=== PATIENT | female | born 1955 | race Caucasian/White ===

== ENCOUNTER 2018-11-24 06:17 | Day surgery (SDC) | payer BC, OTHER ==
[2018-11-20 12:09] LABS: BASOPHILS # (AUTO) 0.1 X10'3 (0-0.2); BASOPHILS % (AUTO) 0.9 % (0-1); EOSINOPHILS # (AUTO) 0.1 X10'3 (0-0.9); EOSINOPHILS % (AUTO) 0.9 % (0-6); LYMPHOCYTES # (AUTO) 1.8 X10'3 (1.1-4.8); LYMPHOCYTES % (AUTO) 26.6 % (21-51); MEAN CORPUSCULAR HEMOGLOBIN 29.3 PG (27.0-31.0); MEAN CORPUSCULAR HGB CONC 33.5 g/dL (33.0-36.5); MEAN CORPUSCULAR VOLUME 87.4 FL (78-98); MEAN PLATELET VOLUME 9.1 FL (7.4-10.4); MONOCYTES # (AUTO) 0.5 X10'3 (0-0.9); MONOCYTES % (AUTO) 6.9 % (2-12); NEUTROPHILS # (AUTO) 4.4 X10'3 (1.8-7.7); NEUTROPHILS % (AUTO) 64.7 % (42-75); PRE OP HEMATOCRIT 44.3 % (35.0-45.0); PRE OP HEMOGLOBIN 14.8 g/dL (12.0-16.0); PRE OP PLATELET COUNT 244 X10'3 (140-440); RED BLOOD COUNT 5.07 X10'6 (4.20-5.60); RED CELL DISTRIBUTION WIDTH 14.3 % (11.5-14.5)
[2018-11-20 12:15] LABS: ALBUMIN 3.4 G/DL (3.4-5.0); ALBUMIN/GLOBULIN RATIO 0.8 (1.1-1.5); ALKALINE PHOSPHATASE 95 IU/L (46-116); BLOOD UREA NITROGEN 16 MG/DL (7-18); BUN/CREATININE RATIO 18.4 (6.6-38.0); CALCIUM 8.8 MG/DL (8.5-10.1); CHLORIDE 106 MMOL/L (99-107); CREATININE 0.87 MG/DL (0.40-0.90); PRE OP ALT 21 U/L (30-65); PRE OP ANION GAP 6 (8-16); PRE OP AST 11 U/L (10-37); PRE OP BILIRUB, TOTAL 0.3 MG/DL (0.0-1.0); PRE OP GLUCOSE 99 MG/DL (70-104); PRE OP POTASSIUM 3.8 MMOL/L (3.4-5.1); PRE OP SODIUM 138 MMOL/L (135-145); TOTAL CARBON DIOXIDE 26.4 MMOL/L (24-32); TOTAL PROTEIN 7.9 G/DL (6.4-8.2); eGFR 65 ML/MIN
[~2018-11-24] VITALS: Ht 163.8 cm; Wt 120.7 kg
[~2018-11-24 06:17] MED LIST: METO50TA7 PO; SIMV20TA5 PO; VALS40TA2 PO
[2018-11-24] MEDS ORDERED: famotidine 20mg tablet PO ONE (06:30)
[2018-11-24] MEDS ORDERED: ringers solution, lacted 1,000 ML IV SCH ×2 (06:30→07:27)
[2018-11-24] MEDS ORDERED: DOCUMENT DATE & TIME OF BETA-BLOCKER PO ONE (06:30)
[2018-11-24] MEDS ORDERED: cefazolin/dext.iso 2gm/100 ML IV ONE (06:30)
[2018-11-24] MEDS ORDERED: BUPIVAcaine/PF 2.5mg/ml (0.25%) 10ml vial ONE (06:38)
[2018-11-24] MEDS ORDERED: LIDOcaine 0.5% (5mg/ml) 50ml vial ONE (07:08)
[2018-11-24] MEDS ORDERED: proCHLORperazine 10 MG/2 ml inj IV PRN (07:30)
[2018-11-24] MEDS ORDERED: meperidine/PF 25mg/ml syringe IV PRN ×3 (07:30)
[2018-11-24] MEDS ORDERED: morphine 4 MG/ML inj SYRINge IV PRN ×2 (07:30)
[2018-11-24] MEDS ORDERED: ondansetron/PF 4mg/2ml inj IV PRN (07:30)
[2018-11-24 07:42] VITALS: BP 162/102
[2018-11-24 07:45] VITALS: BP 162/102
[2018-11-24] MEDS ORDERED: fentaNYL/PF 50MCG/1 ML 2ML syringe ONE (08:12)
[2018-11-24] MEDS ORDERED: midazolam 2 mg/2 ml injection ONE (08:13)
[2018-11-24] MEDS ORDERED: LIDOcaine 1% (10mg/ml) 2ml vial ONE (08:13)
[2018-11-24] MEDS ORDERED: triamcinolone acetonide 40mg/ml inj ONE (08:13)
[2018-11-24 08:35] VITALS: BP 157/74
--- NOTE | 2018-11-24 08:35 | NUR ---
Received from OR via bed, accompanied by Anesthesiologist. Report received. Initial physical assessment done and recorded.
[2018-11-24 08:45] VITALS: BP 156/78
[2018-11-24 08:55] VITALS: BP 148/78
[2018-11-24 09:05] VITALS: BP 149/77
--- NOTE | 2018-11-24 09:10 | NUR ---
Discharged home in good condition. No complaints of pain during post op period, no pain meds given no complaints Discharge criteria met, discharge instructions given, demonstrates verbal understanding.
== END 2018-11-24 09:10 | disposition home or self-care (01) ==
LOC: PAS 06:17
PROVIDERS: ATTEND Orthopaedic Surgery Hand Surgery
DX: G56.02 Carpal tunnel syndrome, left upper limb (principal); M65.332 Trigger finger, left middle finger; E66.9 Obesity, unspecified; Z68.42 Body mass index [BMI] 45.0-49.9, adult; I10 Essential (primary) hypertension; Z88.8 Allergy status to other drugs, medicaments and biological substances; Z79.899 Other long term (current) drug therapy; Z72.89 Other problems related to lifestyle
CPT/HCPCS: 20550; 29848; 36415; 80053; 82948; 85025; 93005; J2001; J2250; J3010; J3301; J3490; A4215; J7120

== ENCOUNTER 2019-02-02 06:41 | Day surgery (SDC) | payer BC, OTHER ==
[2019-01-30 10:37] LABS: BASOPHILS % (AUTO) 0.4 % (0-1); EOSINOPHILS # (AUTO) 0.1 X10'3 (0-0.9); EOSINOPHILS % (AUTO) 2.1 % (0-6); LYMPHOCYTES # (AUTO) 1.5 X10'3 (1.1-4.8); MEAN CORPUSCULAR HEMOGLOBIN 28.6 PG (27.0-31.0); MEAN CORPUSCULAR HGB CONC 32.6 g/dL (33.0-36.5); MEAN CORPUSCULAR VOLUME 87.6 FL (78-98); MONOCYTES # (AUTO) 0.4 X10'3 (0-0.9); MONOCYTES % (AUTO) 5.3 % (2-12); NEUTROPHILS # (AUTO) 4.6 X10'3 (1.8-7.7); NEUTROPHILS % (AUTO) 69.2 % (42-75); PRE OP HEMATOCRIT 46.1 % (35.0-45.0); PRE OP PLATELET COUNT 223 X10'3 (140-440); RED BLOOD COUNT 5.26 X10'6 (4.20-5.60); RED CELL DISTRIBUTION WIDTH 14.2 % (11.5-14.5)
[2019-01-30 10:51] LABS: ALBUMIN 3.5 G/DL (3.4-5.0); ALBUMIN/GLOBULIN RATIO 0.8 (1.1-1.5); ALKALINE PHOSPHATASE 94 IU/L (46-116); BLOOD UREA NITROGEN 13 MG/DL (7-18); CALCIUM 8.7 MG/DL (8.5-10.1); CHLORIDE 108 MMOL/L (99-107); CREATININE 0.81 MG/DL (0.40-0.90); PRE OP ALT 23 U/L (30-65); PRE OP ANION GAP 7 (8-16); PRE OP AST 12 U/L (10-37); PRE OP BILIRUB, TOTAL 0.4 MG/DL (0.0-1.0); PRE OP GLUCOSE 94 MG/DL (70-104); PRE OP POTASSIUM 4.1 MMOL/L (3.4-5.1); PRE OP SODIUM 143 MMOL/L (135-145); TOTAL PROTEIN 7.9 G/DL (6.4-8.2); eGFR 71 ML/MIN
[~2019-02-02] VITALS: Ht 162.6 cm; Wt 122.0 kg
[2019-02-02] MEDS ORDERED: BUPIVAcaine/PF 2.5 mg/ml (0.25%) 30ml vial ONE (06:47)
[2019-02-02] MEDS ORDERED: BUPIVAcaine/PF 2.5mg/ml (0.25%) 10ml vial ONE (06:47)
[2019-02-02 06:55] VITALS: BP 157/85
[2019-02-02] MEDS ORDERED: LIDOcaine 0.5% (5mg/ml) 50ml vial ONE (07:08)
[2019-02-02] MEDS ORDERED: famotidine 20mg tablet PO ONE (07:15)
[2019-02-02] MEDS ORDERED: ringers solution, lacted 1,000 ML IV SCH ×2 (07:15→08:31)
[2019-02-02] MEDS ORDERED: DOCUMENT DATE & TIME OF BETA-BLOCKER PO ONE (07:15)
[2019-02-02] MEDS ORDERED: ceFAZolin 1GM/D5W- ADD-VANTAGE 50 ML IV ONE (07:15)
[2019-02-02] MEDS ORDERED: cefazolin/dext.iso 2gm/50ml 50 ML IV ONE (07:15)
[2019-02-02] MEDS ORDERED: labetalol 20mg/4ml (5mg/ml) syringe IV PRN (08:35)
[2019-02-02] MEDS ORDERED: ondansetron/PF 4mg/2ml inj IV PRN (08:35)
[2019-02-02] MEDS ORDERED: hydrALAZINE 20mg/ml inj. IV PRN (08:35)
[2019-02-02] MEDS ORDERED: fentaNYL/PF 50MCG/1 ML 2ML syringe IV PRN ×2 (08:35)
[2019-02-02] MEDS ORDERED: morphine 4 MG/ML inj SYRINge IV PRN ×2 (08:35)
[2019-02-02] MEDS ORDERED: propofol 10mg/ml 20ml vial IV ONE (09:03)
[2019-02-02] MEDS ORDERED: fentaNYL/PF 50MCG/1 ML 2ML syringe ONE (09:05)
[2019-02-02] MEDS ORDERED: MIDAZolam 5mg/5ml vial ONE (09:05)
[2019-02-02 09:27] VITALS: BP 97/58
--- NOTE | 2019-02-02 09:27 | NUR ---
Received from OR via joslyn, accompanied by Anesthesiologist Maria D and report given by Anesthesiolgist. Pt alert and responsive to questions, on RA and VS all stable. Pt has bandage to right wrist CDI with 20G left hand IVF LR 100cc/hr. Glasses placed on patient. Ice pack placed to right wrist/palm.
[2019-02-02 09:37] VITALS: BP 120/57
[2019-02-02 09:47] VITALS: BP 132/68
[2019-02-02 09:57] VITALS: BP 120/57
--- NOTE | 2019-02-02 10:07 | NUR ---
Pt discharged to vehicle by wheelchair without incident, son present for DC information, both verbalized understanding of DC instructions. Pt has follow up appointment. IV dc'd. All clothing back on patient and all belongings verified prior to leaving. Pt still has numbness and tingling but some feeling to fingers, good cap refill. all VS have been stable.
== END 2019-02-02 10:07 | disposition home or self-care (01) ==
LOC: PAS 06:41
PROVIDERS: ATTEND Orthopaedic Surgery Hand Surgery
DX: G56.01 Carpal tunnel syndrome, right upper limb (principal); I10 Essential (primary) hypertension; E78.00 Pure hypercholesterolemia, unspecified; M19.90 Unspecified osteoarthritis, unspecified site; E66.9 Obesity, unspecified; Z68.42 Body mass index [BMI] 45.0-49.9, adult; Z88.8 Allergy status to other drugs, medicaments and biological substances; Z79.899 Other long term (current) drug therapy; Z90.710 Acquired absence of both cervix and uterus; Z98.890 Other specified postprocedural states; Z96.659 Presence of unspecified artificial knee joint
CPT/HCPCS: 29848; 36415; 80053; 82948; 85025; J0690; J2001; J2250; J3010; J3490; A4215; A7000; J2704; J7120

== ENCOUNTER 2021-02-13 14:44 | Emergency (ER) | payer BC, OTHER ==
[~2021-02-13] VITALS: Ht 162.6 cm; Wt 120.5 kg
[~2021-02-13 14:44] MED LIST changes: +SIMV-42 PO; -SIMV20TA5 PO
[2021-02-13 14:50] VITALS: BP 157/80
[2021-02-13] MEDS ORDERED: ACET-1025 PO (15:51)
[2021-02-13] MEDS ORDERED: ketorolac tromethamine 15mg/ml inj. IM ONE (16:10)
== END 2021-02-13 16:43 | disposition home or self-care (01) ==
LOC: ER 14:45
DX: M79.602 Pain in left arm (principal); Z88.8 Allergy status to other drugs, medicaments and biological substances; Z79.899 Other long term (current) drug therapy; W19.XXXA Unspecified fall, initial encounter; Y93.89 Activity, other specified; Y92.89 Other specified places as the place of occurrence of the external cause; Y99.8 Other external cause status
CPT/HCPCS: 73030; 73060; 99284

== ENCOUNTER 2023-12-01 14:34 | Inpatient (IN) | payer BC, MEDICARE, OTHER ==
[~2023-12-01] VITALS: Ht 162.6 cm; Wt 130.2 kg
[2023-12-01 15:37] LABS: BASOPHILS % (AUTO) 0.6 % (0-1); EOSINOPHILS # (AUTO) 0.1 X10'3 (0-0.9); EOSINOPHILS % (AUTO) 1.9 % (0-6); HEMATOCRIT 41.4 % (35.0-45.0); HEMOGLOBIN 13.6 g/dl (12.0-16.0); LYMPHOCYTES # (AUTO) 1.7 X10'3 (1.1-4.8); LYMPHOCYTES % (AUTO) 24.7 % (21-51); MEAN CORPUSCULAR HEMOGLOBIN 28.5 PG (27.0-31.0); MEAN CORPUSCULAR HGB CONC 32.8 g/dL (33.0-36.5); MEAN PLATELET VOLUME 8.3 FL (7.4-10.4); MONOCYTES # (AUTO) 0.4 X10'3 (0-0.9); NEUTROPHILS # (AUTO) 4.6 X10'3 (1.8-7.7); NEUTROPHILS % (AUTO) 66.8 % (42-75); PLATELET COUNT 205 X10'3 (140-440); RED BLOOD COUNT 4.76 X10'6 (4.20-5.60); RED CELL DISTRIBUTION WIDTH 14.9 % (11.5-14.5); WHITE BLOOD COUNT 6.8 X10'3 (4.5-11.0)
[2023-12-01 16:14] LABS: ALANINE AMINOTRANSFERASE 19 U/L (12-78); ALBUMIN 3.2 G/DL (3.4-5.0); ALBUMIN/GLOBULIN RATIO 0.8 (1.1-1.5); ALKALINE PHOSPHATASE 92 IU/L (46-116); ANION GAP 9 (8-16); ASPARTATE AMINO TRANSFERASE 13 U/L (10-37); BILIRUBIN,TOTAL 0.4 MG/DL (0.1-1.0); BLOOD UREA NITROGEN 13 MG/DL (7-18); BUN/CREATININE RATIO 15.1 (10.0-20.0); CALCIUM 8.6 MG/DL (8.5-10.1); CHLORIDE 105 MMOL/L (99-107); CREATININE 0.86 MG/DL (0.40-0.90); GLUCOSE 108 MG/DL (70-104); POTASSIUM 3.9 MMOL/L (3.5-5.1); SODIUM 141 MMOL/L (135-145); TOTAL CARBON DIOXIDE 27.5 MMOL/L (24-32); TOTAL PROTEIN 7.4 G/DL (6.4-8.2); eCRCL 53 ML/MIN; eGFR 65 ML/MIN
[2023-12-01] MEDS: HYDROcodone/acetaminophen 5mg/325mg tablet PO ONE (17:31)
[2023-12-01] MEDS ORDERED: ondansetron/PF 4mg/2ml inj IV PRN (20:40)
[2023-12-01] MEDS ORDERED: mag hydrox/Alum hydrox/simeth 30ml oral suspension PO PRN (20:40)
[2023-12-01] MEDS ORDERED: magnesium Cl slow-release 64mg tablet PO PRN (20:40)
[2023-12-01] MEDS ORDERED: potassium Cl 20 mEq SR tablet PO PRN ×2 (20:40)
[2023-12-01] MEDS ORDERED: acetaminophen 325mg tablet PO PRN (20:40)
[2023-12-01] MEDS ORDERED: magnesium hydroxide 30ml (MOM) UD suspension PO PRN (20:40)
[2023-12-01] MEDS ORDERED: ESCI-8 PO (21:23)
[2023-12-01] MEDS ORDERED: EZET10TA48 PO (21:23)
[2023-12-01 22:00] VITALS: BP 138/51; PULSE 52; RESP 16; TEMP 98.5; O2SAT 93
[2023-12-01] MEDS ORDERED: HYDROcodone/acetaminophen 5mg/325mg tablet PO PRN (23:15)
[2023-12-01] MEDS: ketorolac trometh. 30mg/ml inj. IV ONE (23:32)
[2023-12-01 23:42] VITALS: RESP 16; O2SAT 93
[2023-12-02] VITALS (7 sets, daily range): BP systolic 138–151; BP diastolic 60–78; PULSE 58–65; RESP 16–20; TEMP 97.5–98.8; O2SAT 93–98
[2023-12-02 04:22] LABS: BASOPHILS % (AUTO) 0.6 % (0-1); EOSINOPHILS # (AUTO) 0.1 X10'3 (0-0.9); EOSINOPHILS % (AUTO) 1.7 % (0-6); HEMATOCRIT 40.4 % (35.0-45.0); HEMOGLOBIN 13.2 g/dl (12.0-16.0); LYMPHOCYTES # (AUTO) 1.8 X10'3 (1.1-4.8); MEAN CORPUSCULAR HEMOGLOBIN 28.5 PG (27.0-31.0); MEAN CORPUSCULAR HGB CONC 32.5 g/dL (33.0-36.5); MEAN CORPUSCULAR VOLUME 87.6 FL (78-98); MEAN PLATELET VOLUME 8.4 FL (7.4-10.4); MONOCYTES # (AUTO) 0.4 X10'3 (0-0.9); MONOCYTES % (AUTO) 5.8 % (2-12); NEUTROPHILS # (AUTO) 4.2 X10'3 (1.8-7.7); NEUTROPHILS % (AUTO) 63.9 % (42-75); PLATELET COUNT 192 X10'3 (140-440); RED BLOOD COUNT 4.61 X10'6 (4.20-5.60); RED CELL DISTRIBUTION WIDTH 14.9 % (11.5-14.5); WHITE BLOOD COUNT 6.5 X10'3 (4.5-11.0)
[2023-12-02 04:37] LABS: ALANINE AMINOTRANSFERASE 16 U/L (12-78); ALBUMIN/GLOBULIN RATIO 0.8 (1.1-1.5); ALKALINE PHOSPHATASE 85 IU/L (46-116); ANION GAP 6 (8-16); ASPARTATE AMINO TRANSFERASE 14 U/L (10-37); BILIRUBIN,TOTAL 0.5 MG/DL (0.1-1.0); BLOOD UREA NITROGEN 13 MG/DL (7-18); BUN/CREATININE RATIO 16.7 (10.0-20.0); CALCIUM 8.6 MG/DL (8.5-10.1); CHLORIDE 105 MMOL/L (99-107); CREATININE 0.78 MG/DL (0.40-0.90); GLUCOSE 94 MG/DL (70-104); MAGNESIUM 2.2 MG/DL (1.5-2.4); PHOSPHORUS 3.8 MG/DL (2.3-4.5); POTASSIUM 3.9 MMOL/L (3.5-5.1); SODIUM 140 MMOL/L (135-145); TOTAL CARBON DIOXIDE 29.4 MMOL/L (24-32); eCRCL 58 ML/MIN; eGFR 73 ML/MIN
[2023-12-02] MEDS: heparin, porcine 5000 units/ml vial SQ SCH (09:45)
[2023-12-02] MEDS: docusate sod 100mg capsule PO SCH (09:45)
[2023-12-02] MEDS: ESCITALOPRAM 10 mg tablet 10 MG TABLET PO SCH (09:45)
[2023-12-02] MEDS: losartan 50mg tablet PO SCH (09:46)
[2023-12-02] MEDS: metoprolol succinate 25mg (24-HOUR) SR. Tablet PO SCH (10:57)
[2023-12-02] MEDS: simvastatin 20mg tablet PO SCH (19:51)
[2023-12-03 05:43] LABS: BASOPHILS % (AUTO) 0.6 % (0-1); EOSINOPHILS # (AUTO) 0.1 X10'3 (0-0.9); EOSINOPHILS % (AUTO) 2.3 % (0-6); HEMOGLOBIN 13.8 g/dl (12.0-16.0); LYMPHOCYTES # (AUTO) 1.6 X10'3 (1.1-4.8); LYMPHOCYTES % (AUTO) 25.2 % (21-51); MEAN CORPUSCULAR HEMOGLOBIN 28.3 PG (27.0-31.0); MEAN CORPUSCULAR HGB CONC 32.9 g/dL (33.0-36.5); MEAN CORPUSCULAR VOLUME 86.2 FL (78-98); MEAN PLATELET VOLUME 8.8 FL (7.4-10.4); MONOCYTES # (AUTO) 0.4 X10'3 (0-0.9); NEUTROPHILS % (AUTO) 64.9 % (42-75); PLATELET COUNT 210 X10'3 (140-440); RED BLOOD COUNT 4.87 X10'6 (4.20-5.60); RED CELL DISTRIBUTION WIDTH 14.5 % (11.5-14.5); WHITE BLOOD COUNT 6.2 X10'3 (4.5-11.0)
[2023-12-03 06:03] LABS: ALANINE AMINOTRANSFERASE 17 U/L (12-78); ALBUMIN 3.1 G/DL (3.4-5.0); ALBUMIN/GLOBULIN RATIO 0.7 (1.1-1.5); ALKALINE PHOSPHATASE 91 IU/L (46-116); ANION GAP 7 (8-16); ASPARTATE AMINO TRANSFERASE 14 U/L (10-37); BILIRUBIN,TOTAL 0.6 MG/DL (0.1-1.0); BLOOD UREA NITROGEN 14 MG/DL (7-18); BUN/CREATININE RATIO 19.2 (10.0-20.0); CALCIUM 8.8 MG/DL (8.5-10.1); CHLORIDE 104 MMOL/L (99-107); CREATININE 0.73 MG/DL (0.40-0.90); GLUCOSE 106 MG/DL (70-104); MAGNESIUM 2.3 MG/DL (1.5-2.4); PHOSPHORUS 3.2 MG/DL (2.3-4.5); POTASSIUM 3.9 MMOL/L (3.5-5.1); SODIUM 137 MMOL/L (135-145); TOTAL CARBON DIOXIDE 26.4 MMOL/L (24-32); TOTAL PROTEIN 7.4 G/DL (6.4-8.2); eCRCL 62 ML/MIN; eGFR 79 ML/MIN
[2023-12-03 07:03] VITALS: BP 135/60; PULSE 52; RESP 20; TEMP 98.1; O2SAT 95
[2023-12-03] MEDS: ezetimibe 10mg tablet PO SCH (08:20)
[2023-12-03 08:40] VITALS: PULSE 79; RESP 18; O2SAT 96
[2023-12-03 09:45] VITALS: RESP 18
[2023-12-03 10:00] VITALS: BP 135/57; PULSE 66; RESP 17; TEMP 97.1; O2SAT 97
[2023-12-03] MEDS ORDERED: HYDR-3965 PO (15:17)
== END 2023-12-03 16:30 | disposition home or self-care (01) | DRG 605 ==
LOC: ER 14:35 → ED HOLD 20:39 → SUR 3N 21:45
PROVIDERS: ADMIT Internal Medicine Critical Care Medicine; ATTEND Internal Medicine
PROC: BR2C1ZZ Computerized Tomography (CT Scan) of Pelvis using Low Osmolar Contrast (ICD-10-PCS; principal; 2023-12-01)
DX: S70.02XA Contusion of left hip, initial encounter (principal); Z68.42 Body mass index [BMI] 45.0-49.9, adult; I10 Essential (primary) hypertension; F41.9 Anxiety disorder, unspecified; G47.33 Obstructive sleep apnea (adult) (pediatric); Z96.652 Presence of left artificial knee joint; W18.39XA Other fall on same level, initial encounter; M25.532 Pain in left wrist; E66.01 Morbid (severe) obesity due to excess calories; Z96.612 Presence of left artificial shoulder joint; Z88.5 Allergy status to narcotic agent; Z79.899 Other long term (current) drug therapy; Y93.89 Activity, other specified; Y92.89 Other specified places as the place of occurrence of the external cause; Y99.8 Other external cause status
CPT/HCPCS: 36415; 72192; 73110; 73502; 73552; 73700; 80053; 83735; 84100; 85025; 94760; 97161; 97530; 99285; G0378; J1644; J1885